=== PATIENT | male | born 1990 | race Caucasian/White ===

== ENCOUNTER 2017-09-27 14:27 | Emergency (ER) | payer SELFPAY ==
[~2017-09-27] VITALS: Ht 188 cm; Wt 99.8 kg
[2017-09-27] MEDS ORDERED: Acetaminophen 500mg (ES) tab ORAL ONE (14:45)
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
[2017-09-27 15:24] VITALS: BP 114/68
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
--- NOTE | 2017-09-27 15:58 | Diagnostic Imaging Report ---
Indications: Pain Technique: Two views of the left humerus Comparison: None Findings: No acute fractures. No dislocations. No radiopaque foreign body demonstrated. Impression: Negative
[2017-09-27] MEDS ORDERED: TYLENOL EXTRA500 MG ORAL (16:01)
[2017-09-27 16:46] VITALS: BP 114/68
== END 2017-09-27 16:48 | disposition home or self-care (01) ==
LOC: EMR 15:21
DX: R51 Headache (principal); M79.602 Pain in left arm; V13.4XXA Pedal cycle driver injured in collision with car, pick-up truck or van in traffic accident, initial encounter; Y93.55 Activity, bike riding; Y92.410 Unspecified street and highway as the place of occurrence of the external cause
CPT/HCPCS: 70450; 99284